=== PATIENT | female | born 1985 | race Caucasian/White ===

== ENCOUNTER → 2016-11-16 | Outpatient (CLI) | payer OTHER ==
[~2016-11-16] MED LIST: FLUO40CA2 PO; GABA-827 PO; MULT-257 PO
[2016-11-16 12:39] LABS: BLOOD UREA NITROGEN 17 mg/dL (7-18)
[2016-11-16 12:45] LABS: ASPARTATE AMINO TRANSFERASE 8 U/L (15-37)
== END | disposition home or self-care (01) ==
LOC: STAR 11:17
PROVIDERS: ATTEND Specialist
DX: Z01.818 Encounter for other preprocedural examination (principal); R19.07 Generalized intra-abdominal and pelvic swelling, mass and lump; R79.1 Abnormal coagulation profile; Z90.710 Acquired absence of both cervix and uterus
CPT/HCPCS: 36415; 80053; 84703; 85025; 85610; 85730

== ENCOUNTER 2016-11-28 07:05 | Day surgery (SDC) | payer OTHER ==
[2016-11-16 12:20] VITALS: BP 126/85
[~2016-11-28] VITALS: Ht 154.9 cm; Wt 110.0 kg
[~2016-11-28 07:05] MED LIST changes: +BUPIVACAINE/PF-EPI 0.25% 1:200K ONE; +CEFAZOLIN 1,000 MG ONE; +DEXAMETHASONE 4 MG/ML, 1ML ONE; +NEOSTIGMINE 1 MG/ML, 10ML ONE; +ONDANSETRON 2MG/ML, 2ML ONE; +PROPOFOL 10 MG/ML, 20ML ONE; +ROCURONIUM 10 MG/ML ONE
[2016-11-28] MEDS ORDERED: LACTATED RINGERS 1,000 ML IV SCH (07:38)
[2016-11-28] MEDS ORDERED: ALBUTEROL INHALER INH (07:50)
[2016-11-28 08:14] LABS: HCG UR OBC PASS
[2016-11-28] MEDS ORDERED: FENTANYL PF 250 MCG/5ML ONE (09:12)
[2016-11-28] MEDS ORDERED: MIDAZOLAM 1 MG/ML, 2ML ONE (09:12)
[2016-11-28] MEDS ORDERED: ACETAMINOPHEN 325 MG TABLET PO PRN (11:00)
[2016-11-28] MEDS ORDERED: LABETALOL 5MG/ML, 20ML IV PRN (11:00)
[2016-11-28] MEDS ORDERED: OXYcodone 5 MG/5 ML ORAL.SOL UDC PO PRN (11:00)
[2016-11-28] MEDS ORDERED: ONDANSETRON 2MG/ML, 2ML IVPush PRN (11:00)
[2016-11-28] MEDS ORDERED: HYDROmorphone 1 MG/ML, 1ML IV PRN (11:00)
[2016-11-28] MEDS ORDERED: METOCLOPRAMIDE 5 MG/ML, 2ML IV PRN (11:00)
[2016-11-28] MEDS ORDERED: MEPERIDINE/PF 25MG/0.5ML IVPush PRN (11:00)
[2016-11-28] MEDS ORDERED: MORPHINE SULFATE 4 MG/ML, 1ML ONE (11:12)
[2016-11-28] MEDS ORDERED: OXYcodone 5 MG/5 ML ORAL.SOL UDC ONE (11:29)
[2016-11-28] MEDS ORDERED: ONDANSETRON 2MG/ML, 2ML ONE ×2 (11:29→15:07)
[2016-11-28] MEDS ORDERED: FENTANYL PF 100 MCG/2ML ONE (11:29)
[2016-11-28] MEDS: FENTANYL PF 100 MCG/2ML IV PRN ×2 (11:30→11:55)
[2016-11-28] MEDS ORDERED: MEPERIDINE/PF 25MG/0.5ML ONE (11:40)
[2016-11-28] MEDS ORDERED: PROMETHAZINE 25 MG/ML, 1ML ONE (11:51)
[2016-11-28] MEDS ORDERED: PROMETHAZINE 25 MG/ML, 1ML IV PRN (12:30)
[2016-11-28] MEDS ORDERED: ONDANSETRON 2MG/ML, 2ML IVPush ONE (15:30)
[2016-11-28] MEDS ORDERED: SCOPOLAMINE PATCH, 1.5MG PATCH.TD72 TD ONE (16:00)
[2016-11-28] MEDS ORDERED: PROCHLORPERAZINE 5 MG/ML, 2ML IVPush ONE (16:00)
[2016-11-28] MEDS ORDERED: KETOROLAC 30 MG/1 ML ONE (17:52)
[2016-11-28] MEDS ORDERED: KETOROLAC 30 MG/1 ML IVPush ONE (18:00)
== END 2016-11-28 18:30 | disposition home or self-care (01) ==
LOC: OR 07:05 → OUT 18:30
PROVIDERS: ATTEND Specialist
DX: N83.02 Follicular cyst of left ovary (principal); N70.11 Chronic salpingitis; A42.89 Other forms of actinomycosis; N73.6 Female pelvic peritoneal adhesions (postinfective); Z91.018 Allergy to other foods; Z88.8 Allergy status to other drugs, medicaments and biological substances; F32.9 Major depressive disorder, single episode, unspecified; E66.01 Morbid (severe) obesity due to excess calories; Z68.42 Body mass index [BMI] 45.0-49.9, adult; J45.909 Unspecified asthma, uncomplicated; G43.909 Migraine, unspecified, not intractable, without status migrainosus; Z72.89 Other problems related to lifestyle; Z87.891 Personal history of nicotine dependence; Z83.3 Family history of diabetes mellitus; Z82.5 Family history of asthma and other chronic lower respiratory diseases; Z82.49 Family history of ischemic heart disease and other diseases of the circulatory system; Z82.0 Family history of epilepsy and other diseases of the nervous system; Z80.8 Family history of malignant neoplasm of other organs or systems
CPT/HCPCS: 36415; 58571; 81025; 86850; 86900; 86923; 87070; 87075; 87077; 87186; 87205; 88307; J0690; J1100; J1885; J2175; J2250; J2405; J2550; J2704; J2710; J3010; J7120; S2900